=== PATIENT | male | born 1950 | race Caucasian/White ===

== ENCOUNTER 2018-02-07 13:14 | Inpatient (IN) ==
[2018-02-07] MEDS ORDERED: MORPHINE 2 MG/1 ML SYRINGE IV PRN ×2 (15:49→19:33)
[2018-02-07 16:03] LABS: Basophils % 0.6 % (0.0-0.8); Hematocrit 34.8 VOL% (42.0-52.0); Hemoglobin 11.7 GM/DL (14.0-18.0); Immature Granulocytes % 0.6 %; Immature Granulocytes Absolute 0.02 #; Lymphocytes # 0.9 10*3/uL (1.4-4.0); Lymphocytes % 23.8 % (21.2-54.2); Mean Corpuscular HGB Conc 33.6 GM/DL (32-36); Mean Corpuscular Hemoglobin 28 PG (27-34); Mean Corpuscular Volume 81.7 FL (87-102); Mean Platelet Volume 10.7 FL (9.6-12.0); Monocytes # 0.7 10*3/uL (0.11-0.8); Monocytes % 19.6 % (1.7-12.7); Neutrophils % 55.4 % (38.7-73.9); Platelet Count 184 T/CUMM (130-400); Red Blood Count 4.26 MC/CUMM (3.8-5.5); Red Cell Distribution Width 13.8 % (9.3-17.3); White Blood Count 3.6 T/CUMM (4-12)
[2018-02-07] MEDS ORDERED: MORPHINE 2 MG/1 ML SYRINGE ONE (16:23)
[2018-02-07 16:24] LABS: Calcium 8.4 MG/DL (8.5-10.1); Osmolality,Calculated 254.2 MOS/KG (273-304); Potassium 4.6 MMOL/L (3.5-5.1)
[2018-02-07] MEDS ORDERED: SODIUM CHLORIDE 0.9% 1,000 ML IV STA (17:56)
[2018-02-07 18:33] LABS: Band Neutrophils 2 % (0-10); Eosinophils 2 % (0-10); Lymphocytes 22 % (20-55); Platelet Estimate Normal; Segmented Neutrophils 54 % (50-85); Total Cells Counted 100
[2018-02-07] MEDS ORDERED: NICOTINE 21 MG/24 HR PATCH TRANSDERM PRN (19:33)
[2018-02-07] MEDS ORDERED: ONDANSETRON 4 MG/2 ML VIAL IV PRN (19:33)
[2018-02-07] MEDS: SODIUM CHLORIDE 0.9% 1,000 ML IV SCH (21:17)
[2018-02-07] MEDS ORDERED: ONDANSETRON 4 MG TABLET PO PRN (21:21)
[2018-02-07] MEDS ORDERED: LOPERAMIDE 2 MG CAPSULE PO PRN (21:21)
[2018-02-07] MEDS ORDERED: IBUPROFEN 200 MG TABLET PO PRN (21:21)
[2018-02-07] MEDS ORDERED: traMADol 50 MG TABLET PO PRN (21:21)
[2018-02-07] MEDS: ENOXAPARIN 40 MG/0.4 ML SYRINGE SUBCUT SCH (21:26)
[2018-02-07] MEDS: ACETAMINOPHEN 325 MG TABLET PO PRN (21:26)
[2018-02-07] MEDS: LEVOFLOXACIN INJ 750 MG in PREMIX 1 EACH IV SCH (21:26)
[2018-02-07] MEDS: MEGESTROL 40 MG TABLET PO SCH (21:27)
[2018-02-07] MEDS: CARVEDILOL 25 MG TABLET PO SCH (22:14)
[2018-02-07] MEDS: ZALEPLON 5 MG CAPSULE PO PRN (22:54)
[2018-02-08] MEDS: ALBUTEROL/IPRATROPIUM 3 ML NEB RESP TX SCH ×4 (01:55→18:47)
[2018-02-08 05:05] LABS: Basophils % 0.4 % (0.0-0.8); Eosinophils % 0.4 % (0.00-10.9); Hematocrit 31.9 VOL% (42.0-52.0); Hemoglobin 10.8 GM/DL (14.0-18.0); Immature Granulocytes % 0.7 %; Immature Granulocytes Absolute 0.02 #; Lymphocytes # 0.7 10*3/uL (1.4-4.0); Lymphocytes % 24.1 % (21.2-54.2); Mean Corpuscular HGB Conc 33.9 GM/DL (32-36); Mean Corpuscular Hemoglobin 27 PG (27-34); Mean Corpuscular Volume 79.8 FL (87-102); Mean Platelet Volume 10.7 FL (9.6-12.0); Monocytes # 0.7 10*3/uL (0.11-0.8); Monocytes % 24.5 % (1.7-12.7); Neutrophils # 1.4 10*3/uL (1.4-7.4); Neutrophils % 49.9 % (38.7-73.9); Platelet Count 173 T/CUMM (130-400); White Blood Count 2.7 T/CUMM (4-12)
[2018-02-08 05:44] LABS: Albumin 2.2 G/DL (3.4-5.0); Bilirubin,Total 0.9 MG/DL (0.2-1.0); Calcium 7.9 MG/DL (8.5-10.1); Osmolality,Calculated 258.8 MOS/KG (273-304); Potassium 4.2 MMOL/L (3.5-5.1); Total Protein 6.1 G/DL (6.4-8.3)
[2018-02-08 07:02] LABS: Band Neutrophils 22 % (0-10); Lymphocytes 30 % (20-55); Segmented Neutrophils 34 % (50-85); Total Cells Counted 100
[2018-02-08 07:03] LABS: Anisocytosis 1+; Poikilocytosis 1+
[2018-02-08] MEDS: SODIUM CHLORIDE 0.9% 1,000 ML IV SCH ×2 (08:16→19:49)
[2018-02-08] MEDS: MEGESTROL 40 MG TABLET PO SCH ×3 (08:20→20:28)
[2018-02-08] MEDS: PANTOPRAZOLE 40 MG TABLET PO SCH (08:20)
[2018-02-08] MEDS: CARVEDILOL 25 MG TABLET PO SCH ×2 (08:20→20:28)
[2018-02-08] MEDS: amLODIPine 10 MG TABLET PO SCH (08:21)
[2018-02-08] MEDS: ACETAMINOPHEN 325 MG TABLET PO PRN ×2 (08:45→22:25)
[2018-02-08] MEDS: methylPREDNISolone SOD SUC 40 MG/1 ML VIAL IV SCH ×2 (14:18→20:28)
[2018-02-08] MEDS: LEVOFLOXACIN INJ 750 MG in PREMIX 1 EACH IV SCH (20:27)
[2018-02-08] MEDS: ENOXAPARIN 40 MG/0.4 ML SYRINGE SUBCUT SCH (20:49)
[2018-02-08] MEDS: ZALEPLON 5 MG CAPSULE PO PRN (22:25)
[2018-02-09] MEDS: ALBUTEROL/IPRATROPIUM 3 ML NEB RESP TX SCH ×4 (00:05→19:27)
[2018-02-09] MEDS: SODIUM CHLORIDE 0.9% 1,000 ML IV SCH ×2 (06:00→17:38)
[2018-02-09] MEDS: methylPREDNISolone SOD SUC 40 MG/1 ML VIAL IV SCH ×3 (06:00→21:07)
[2018-02-09] MEDS ORDERED: TRIAMCINOLONE ACETONIDE 40 MG/1 ML VIAL MISC INJ ONE (09:00)
[2018-02-09] MEDS ORDERED: ROPIVACAINE 0.5% 30 ML VIAL MISC INJ ONE (09:00)
[2018-02-09] MEDS: MEGESTROL 40 MG TABLET PO SCH ×3 (11:43→21:03)
[2018-02-09] MEDS: PANTOPRAZOLE 40 MG TABLET PO SCH (11:43)
[2018-02-09] MEDS: amLODIPine 10 MG TABLET PO SCH (11:43)
[2018-02-09] MEDS: CARVEDILOL 25 MG TABLET PO SCH ×2 (11:44→21:03)
[2018-02-09] MEDS: FLUTICASONE 50 MCG NASAL SPRAY 16 GM BOTTLE BOTH NARES SCH ×2 (17:36→21:09)
[2018-02-09] MEDS: CIPROFLOXACIN 500 MG TABLET PO SCH (21:03)
[2018-02-09] MEDS: ZALEPLON 5 MG CAPSULE PO PRN (21:06)
[2018-02-09] MEDS: ENOXAPARIN 40 MG/0.4 ML SYRINGE SUBCUT SCH (21:10)
[2018-02-10] MEDS: ALBUTEROL/IPRATROPIUM 3 ML NEB RESP TX SCH ×2 (00:12→07:08)
[2018-02-10] MEDS: methylPREDNISolone SOD SUC 40 MG/1 ML VIAL IV SCH (04:47)
[2018-02-10 08:32] VITALS: BP 137/59
[2018-02-10] MEDS: MEGESTROL 40 MG TABLET PO SCH (09:17)
[2018-02-10] MEDS: PANTOPRAZOLE 40 MG TABLET PO SCH (09:17)
[2018-02-10] MEDS: CIPROFLOXACIN 500 MG TABLET PO SCH (09:17)
[2018-02-10] MEDS: amLODIPine 10 MG TABLET PO SCH (09:17)
[2018-02-10] MEDS: CARVEDILOL 25 MG TABLET PO SCH (09:18)
[2018-02-10] MEDS: FLUTICASONE 50 MCG NASAL SPRAY 16 GM BOTTLE BOTH NARES SCH (09:18)
[2018-02-10] MEDS ORDERED: diphenhydrAMINE 25 MG/10 ML UDCUP PO PRN (10:20)
[2018-02-10] MEDS ORDERED: BENZONATATE 100 MG CAPSULE PO SCH (13:00)
== END 2018-02-10 15:21 | disposition home or self-care (01) | DRG 205 ==
LOC: N.ED 13:14 → N.EDINP 18:31 → N.4E 20:54
PROVIDERS: ADMIT Internal Medicine; ATTEND Internal Medicine

== ENCOUNTER 2018-02-17 16:01 | Inpatient (IN) ==
[2018-02-17 18:14] LABS: Basophils % 0.2 % (0.0-0.8); Hematocrit 34.9 VOL% (42.0-52.0); Hemoglobin 11.8 GM/DL (14.0-18.0); Immature Granulocytes % 1.8 %; Immature Granulocytes Absolute 0.24 #; Lymphocytes # 1.1 10*3/uL (1.4-4.0); Lymphocytes % 7.9 % (21.2-54.2); Mean Corpuscular HGB Conc 33.8 GM/DL (32-36); Mean Corpuscular Hemoglobin 27 PG (27-34); Mean Corpuscular Volume 79.5 FL (87-102); Mean Platelet Volume 9.2 FL (9.6-12.0); Monocytes # 0.8 10*3/uL (0.11-0.8); Monocytes % 6.2 % (1.7-12.7); Neutrophils # 11.2 10*3/uL (1.4-7.4); Neutrophils % 83.9 % (38.7-73.9); Platelet Count 353 T/CUMM (130-400); Red Blood Count 4.39 MC/CUMM (3.8-5.5); Red Cell Distribution Width 15.8 % (9.3-17.3); White Blood Count 13.3 T/CUMM (4-12)
[2018-02-17] MEDS ORDERED: SODIUM CHLORIDE 0.9% 1,000 ML IV STA (18:24)
[2018-02-17] MEDS ORDERED: LEVOFLOXACIN INJ 750 MG in PREMIX 1 EACH IV STA (18:25)
[2018-02-17 18:40] LABS: Albumin 2.5 G/DL (3.4-5.0); Bilirubin,Total 0.5 MG/DL (0.2-1.0); Calcium 8.6 MG/DL (8.5-10.1); Osmolality,Calculated 265.5 MOS/KG (273-304); Potassium 4.2 MMOL/L (3.5-5.1); Total Protein 6.6 G/DL (6.4-8.3)
[2018-02-17 18:49] LABS: PT Patient Result 10.5 SECS
[2018-02-17] MEDS ORDERED: CEFEPIME 2,000 MG in SODIUM CHLORIDE 0.9% 100 ML IV STA (19:05)
[2018-02-17] MEDS ORDERED: LEVOFLOXACIN INJ 150 ML IV ONE (20:02)
[2018-02-17] MEDS ORDERED: CEFEPIME 2,000 MG VIAL ONE (21:19)
[2018-02-17] MEDS ORDERED: ONDANSETRON 4 MG TABLET PO PRN (22:03)
[2018-02-17] MEDS ORDERED: ONDANSETRON 4 MG/2 ML VIAL IV PRN (22:03)
[2018-02-17] MEDS ORDERED: LOPERAMIDE 2 MG CAPSULE PO PRN (22:03)
[2018-02-17] MEDS: PIPERACILLIN/TAZOBACTAM 3,375 MG in SODIUM CHLORIDE 0.9% 100 ML IV SCH (22:26)
[2018-02-17] MEDS: SODIUM CHLORIDE 0.9% 1,000 ML IV SCH (22:27)
[2018-02-17] MEDS: ENOXAPARIN 40 MG/0.4 ML SYRINGE SUBCUT SCH (22:27)
[2018-02-17] MEDS: CARVEDILOL 25 MG TABLET PO SCH (22:27)
[2018-02-17] MEDS: FLUTICASONE 50 MCG NASAL SPRAY 16 GM BOTTLE BOTH NARES SCH (22:27)
[2018-02-17] MEDS: MEGESTROL 40 MG TABLET PO SCH (22:27)
[2018-02-17] MEDS: traMADol 50 MG TABLET PO PRN (22:32)
[2018-02-17] MEDS: ACETAMINOPHEN 325 MG TABLET PO PRN (22:32)
[2018-02-17 23:20] LABS: Thyroid Stimulating Hormone 0.143 uIU/ml (0.358-3.74)
[2018-02-18] MEDS: traZODone 50 MG TABLET PO PRN ×2 (01:27→20:54)
[2018-02-18 05:58] LABS: Basophils % 0.2 % (0.0-0.8); Eosinophils % 0.3 % (0.00-10.9); Hematocrit 30.9 VOL% (42.0-52.0); Hemoglobin 10.5 GM/DL (14.0-18.0); Immature Granulocytes % 1.4 %; Immature Granulocytes Absolute 0.16 #; Lymphocytes # 1.4 10*3/uL (1.4-4.0); Lymphocytes % 12.8 % (21.2-54.2); Mean Corpuscular Hemoglobin 27 PG (27-34); Mean Corpuscular Volume 79.6 FL (87-102); Mean Platelet Volume 9.3 FL (9.6-12.0); Monocytes % 9.1 % (1.7-12.7); Neutrophils # 8.6 10*3/uL (1.4-7.4); Neutrophils % 76.2 % (38.7-73.9); Platelet Count 306 T/CUMM (130-400); Red Blood Count 3.88 MC/CUMM (3.8-5.5); Red Cell Distribution Width 15.9 % (9.3-17.3); White Blood Count 11.2 T/CUMM (4-12)
[2018-02-18 06:34] LABS: Albumin 2.1 G/DL (3.4-5.0); Bilirubin,Total 0.6 MG/DL (0.2-1.0); Calcium 8.3 MG/DL (8.5-10.1); Osmolality,Calculated 267.1 MOS/KG (273-304); Potassium 3.9 MMOL/L (3.5-5.1); Risk Ratio 3.21; Total Protein 5.7 G/DL (6.4-8.3); VLDL CHOLESTEROL 13.8 MG/DL
[2018-02-18] MEDS: PIPERACILLIN/TAZOBACTAM 3,375 MG in SODIUM CHLORIDE 0.9% 100 ML IV SCH ×3 (07:12→22:30)
[2018-02-18] MEDS: MULTIVITAMIN (CENTRUM) TABLET PO SCH (10:00)
[2018-02-18] MEDS: CARVEDILOL 25 MG TABLET PO SCH ×2 (10:01→20:54)
[2018-02-18] MEDS: FLUTICASONE 50 MCG NASAL SPRAY 16 GM BOTTLE BOTH NARES SCH ×2 (10:01→20:54)
[2018-02-18] MEDS: MEGESTROL 40 MG TABLET PO SCH ×3 (10:02→20:53)
[2018-02-18] MEDS: amLODIPine 10 MG TABLET PO SCH (10:02)
[2018-02-18] MEDS: predniSONE 20 MG TABLET PO SCH (10:02)
[2018-02-18] MEDS: traMADol 50 MG TABLET PO PRN ×2 (10:05→20:59)
[2018-02-18] MEDS: SODIUM CHLORIDE 0.9% 1,000 ML IV SCH (14:16)
[2018-02-18 19:40] LABS: Apearance,Urine CLEAR (Clear); Bilirubin,Urine Negative (Negative); Blood, Urine Negative (Negative); Glucose,Urine (UA) 50 mg/dL (Negative); Ketones,Urine Negative (Negative); Nitrite,Urine Negative (Negative); Protein,Urine Negative; RBC,Urine <1 /HPF (0-4); Squamous Epithelial Cell,Urine Occasional /HPF (0-10); Urine Color Yellow (Yellow); Urine Specific Gravity 1.016 (1.001-1.035); Urine Urobilinogen < 2.0 EU/DL (0.2-1.0); WBC,Urine 1 /HPF (0-6)
[2018-02-18] MEDS: ALBUTEROL/IPRATROPIUM 3 ML NEB RESP TX SCH (20:01)
[2018-02-18] MEDS: ENOXAPARIN 40 MG/0.4 ML SYRINGE SUBCUT SCH (20:53)
[2018-02-18] MEDS: LEVOFLOXACIN INJ 750 MG in PREMIX 1 EACH IV SCH (20:53)
[2018-02-18] MEDS: ACETAMINOPHEN 325 MG TABLET PO PRN (20:59)
[2018-02-19] MEDS: ALBUTEROL/IPRATROPIUM 3 ML NEB RESP TX SCH ×4 (01:11→19:37)
[2018-02-19 06:35] LABS: Basophils % 0.1 % (0.0-0.8); Eosinophils % 0.2 % (0.00-10.9); Hematocrit 32.6 VOL% (42.0-52.0); Hemoglobin 10.9 GM/DL (14.0-18.0); Immature Granulocytes % 1.1 %; Immature Granulocytes Absolute 0.11 #; Lymphocytes # 1.3 10*3/uL (1.4-4.0); Lymphocytes % 12.9 % (21.2-54.2); Mean Corpuscular HGB Conc 33.4 GM/DL (32-36); Mean Corpuscular Hemoglobin 27 PG (27-34); Mean Corpuscular Volume 79.7 FL (87-102); Mean Platelet Volume 9.3 FL (9.6-12.0); Monocytes # 0.9 10*3/uL (0.11-0.8); Monocytes % 8.7 % (1.7-12.7); Neutrophils # 7.8 10*3/uL (1.4-7.4); Platelet Count 299 T/CUMM (130-400); Red Blood Count 4.09 MC/CUMM (3.8-5.5); White Blood Count 10.1 T/CUMM (4-12)
[2018-02-19] MEDS: PIPERACILLIN/TAZOBACTAM 3,375 MG in SODIUM CHLORIDE 0.9% 100 ML IV SCH ×2 (07:02→13:58)
[2018-02-19 07:09] LABS: Calcium 8.2 MG/DL (8.5-10.1); Osmolality,Calculated 267.1 MOS/KG (273-304)
[2018-02-19] MEDS: amLODIPine 10 MG TABLET PO SCH (08:49)
[2018-02-19] MEDS: MEGESTROL 40 MG TABLET PO SCH ×4 (08:49→21:06)
[2018-02-19] MEDS: predniSONE 20 MG TABLET PO SCH (08:49)
[2018-02-19] MEDS: FLUTICASONE 50 MCG NASAL SPRAY 16 GM BOTTLE BOTH NARES SCH ×2 (08:49→21:06)
[2018-02-19] MEDS: MULTIVITAMIN (CENTRUM) TABLET PO SCH (08:50)
[2018-02-19] MEDS: CARVEDILOL 25 MG TABLET PO SCH ×2 (08:50→21:05)
[2018-02-19] MEDS: traMADol 50 MG TABLET PO PRN ×2 (08:55→21:54)
[2018-02-19] MEDS: NICOTINE 21 MG/24 HR PATCH TRANSDERM PRN (08:55)
[2018-02-19] MEDS: SODIUM CHLORIDE 0.9% 1,000 ML IV SCH ×2 (11:20→13:55)
[2018-02-19] MEDS: ENOXAPARIN 40 MG/0.4 ML SYRINGE SUBCUT SCH (21:06)
[2018-02-19] MEDS: traZODone 50 MG TABLET PO PRN (21:06)
[2018-02-19] MEDS: LEVOFLOXACIN INJ 750 MG in PREMIX 1 EACH IV SCH (21:54)
[2018-02-20] MEDS: PIPERACILLIN/TAZOBACTAM 3,375 MG in SODIUM CHLORIDE 0.9% 100 ML IV SCH ×2 (00:44→09:23)
[2018-02-20] MEDS: ALBUTEROL/IPRATROPIUM 3 ML NEB RESP TX SCH ×4 (00:53→19:21)
[2018-02-20] MEDS: SODIUM CHLORIDE 0.9% 1,000 ML IV SCH ×2 (08:08→17:17)
[2018-02-20] MEDS: MULTIVITAMIN (CENTRUM) TABLET PO SCH (09:23)
[2018-02-20] MEDS: CARVEDILOL 25 MG TABLET PO SCH ×2 (09:23→20:54)
[2018-02-20] MEDS: MEGESTROL 40 MG TABLET PO SCH ×3 (09:23→20:54)
[2018-02-20] MEDS: predniSONE 20 MG TABLET PO SCH (09:23)
[2018-02-20] MEDS: FLUTICASONE 50 MCG NASAL SPRAY 16 GM BOTTLE BOTH NARES SCH ×2 (09:24→22:02)
[2018-02-20] MEDS: amLODIPine 10 MG TABLET PO SCH (09:24)
[2018-02-20] MEDS: traMADol 50 MG TABLET PO PRN ×2 (09:27→20:54)
[2018-02-20] MEDS: amLODIPine 5 MG TABLET PO SCH (11:38)
[2018-02-20] MEDS: NICOTINE 21 MG/24 HR PATCH TRANSDERM PRN (14:07)
[2018-02-20] MEDS ORDERED: BISACODYL 5 MG TABLET PO PRN (14:13)
[2018-02-20] MEDS: traZODone 50 MG TABLET PO PRN (20:54)
[2018-02-20] MEDS: LEVOFLOXACIN INJ 750 MG in PREMIX 1 EACH IV SCH (20:55)
[2018-02-20] MEDS: ENOXAPARIN 40 MG/0.4 ML SYRINGE SUBCUT SCH (20:55)
[2018-02-21] MEDS: ALBUTEROL/IPRATROPIUM 3 ML NEB RESP TX SCH ×2 (00:28→07:10)
[2018-02-21 05:59] LABS: Basophils % 0.1 % (0.0-0.8); Eosinophils % 0.2 % (0.00-10.9); Hemoglobin 10.8 GM/DL (14.0-18.0); Immature Granulocytes % 0.8 %; Immature Granulocytes Absolute 0.08 #; Lymphocytes # 1.5 10*3/uL (1.4-4.0); Lymphocytes % 14.9 % (21.2-54.2); Mean Corpuscular HGB Conc 33.8 GM/DL (32-36); Mean Corpuscular Hemoglobin 27 PG (27-34); Mean Corpuscular Volume 80.2 FL (87-102); Mean Platelet Volume 9.6 FL (9.6-12.0); Monocytes # 0.9 10*3/uL (0.11-0.8); Monocytes % 8.9 % (1.7-12.7); Neutrophils # 7.4 10*3/uL (1.4-7.4); Neutrophils % 75.1 % (38.7-73.9); Platelet Count 296 T/CUMM (130-400); Red Blood Count 3.99 MC/CUMM (3.8-5.5); Red Cell Distribution Width 15.9 % (9.3-17.3); White Blood Count 9.9 T/CUMM (4-12)
[2018-02-21 06:32] LABS: Calcium 8.1 MG/DL (8.5-10.1); Osmolality,Calculated 268.1 MOS/KG (273-304); Potassium 3.8 MMOL/L (3.5-5.1)
[2018-02-21] MEDS: SODIUM CHLORIDE 0.9% 1,000 ML IV SCH (08:24)
[2018-02-21] MEDS: CARVEDILOL 25 MG TABLET PO SCH (08:25)
[2018-02-21] MEDS: MULTIVITAMIN (CENTRUM) TABLET PO SCH (08:25)
[2018-02-21] MEDS: MEGESTROL 40 MG TABLET PO SCH (08:25)
[2018-02-21] MEDS: amLODIPine 5 MG TABLET PO SCH (08:25)
[2018-02-21] MEDS: FLUTICASONE 50 MCG NASAL SPRAY 16 GM BOTTLE BOTH NARES SCH (08:25)
[2018-02-21] MEDS: predniSONE 20 MG TABLET PO SCH (08:25)
[2018-02-21] MEDS: traMADol 50 MG TABLET PO PRN (08:31)
[2018-02-21] MEDS ORDERED: LEVOFLOXACIN 500 MG TABLET PO SCH (09:30)
[2018-02-21] MEDS ORDERED: PHENYLEPH/MINERAL OIL/PETROLAT 57 GM TUBE TOP PRN (09:35)
[2018-02-21] MEDS ORDERED: MEGESTROL 40 MG TABLET PO SCH (11:30)
[2018-02-21 12:51] VITALS: BP 140/68
== END 2018-02-21 13:43 | disposition home or self-care (01) | DRG 194 ==
LOC: N.ED 16:01 → N.EDINP 19:56 → SUATTDRO 19:56 → N.5E 21:13
PROVIDERS: ADMIT Internal Medicine; ATTEND Internal Medicine

== ENCOUNTER 2018-10-16 06:33 | Inpatient (IN) ==
[2018-10-16] MEDS ORDERED: ALBUTEROL/IPRATROPIUM 3 ML NEB RESP TX STA (06:50)
[2018-10-16] MEDS ORDERED: methylPREDNISolone SOD SUC 125 MG/2 ML VIAL IV STA (06:50)
[2018-10-16 07:08] LABS: Basophils % 0.8 % (0.0-0.8); Eosinophils # 0.1 10*3/uL (0.0-0.87); Eosinophils % 2.4 % (0.00-10.9); Hematocrit 43.8 VOL% (42.0-52.0); Hemoglobin 14.5 GM/DL (14.0-18.0); Immature Granulocytes % 0.4 %; Immature Granulocytes Absolute 0.02 #; Lymphocytes # 0.6 10*3/uL (1.4-4.0); Lymphocytes % 11.4 % (21.2-54.2); Mean Corpuscular HGB Conc 33.1 GM/DL (32-36); Mean Corpuscular Hemoglobin 30 PG (27-34); Mean Corpuscular Volume 89.6 FL (87-102); Monocytes # 0.4 10*3/uL (0.11-0.8); Monocytes % 8.2 % (1.7-12.7); Neutrophils # 3.9 10*3/uL (1.4-7.4); Neutrophils % 76.8 % (38.7-73.9); Platelet Count 168 T/CUMM (130-400); Red Blood Count 4.89 MC/CUMM (3.8-5.5); Red Cell Distribution Width 14.8 % (9.3-17.3); White Blood Count 5.1 T/CUMM (4-12)
[2018-10-16 07:37] LABS: Albumin 3.2 G/DL (3.4-5.0); Bilirubin,Total 0.5 MG/DL (0.2-1.0); Calcium 8.6 MG/DL (8.5-10.1); Osmolality,Calculated 273.8 MOS/KG (273-304); Potassium 4.3 MMOL/L (3.5-5.1); Total Protein 7.3 G/DL (6.4-8.3)
[2018-10-16] MEDS ORDERED: LEVOFLOXACIN INJ 500 MG in PREMIX 1 EACH IV STA (08:31)
[2018-10-16] MEDS ORDERED: ONDANSETRON 4 MG/2 ML VIAL IV PRN (08:50)
[2018-10-16] MEDS: PANTOPRAZOLE 40 MG TABLET PO SCH (11:03)
[2018-10-16] MEDS: ENOXAPARIN 40 MG/0.4 ML SYRINGE SUBCUT SCH (11:03)
[2018-10-16] MEDS ORDERED: ALBUTEROL 2.5 MG/3 ML NEB RESP TX PRN (11:45)
[2018-10-16] MEDS ORDERED: SIMETHICONE CHEW 125 MG TABLET PO PRN (11:58)
[2018-10-16] MEDS: NICOTINE 21 MG/24 HR PATCH TRANSDERM SCH (12:49)
[2018-10-16] MEDS: ALBUTEROL/IPRATROPIUM 3 ML NEB RESP TX SCH ×2 (13:00→19:09)
[2018-10-16] MEDS: ACETAMINOPHEN 325 MG TABLET PO PRN ×2 (14:10→21:12)
[2018-10-16] MEDS ORDERED: traZODone 50 MG TABLET PO PRN (15:22)
[2018-10-16] MEDS ORDERED: NITROGLYCERIN SL 0.4 MG TABLET SL PRN (15:40)
[2018-10-16] MEDS ORDERED: NITROGLYCERIN SL 0.4 MG TABLET SL ONE (15:41)
[2018-10-16] MEDS ORDERED: MORPHINE 4 MG/1 ML VIAL IV PRN (15:41)
[2018-10-16 16:05] LABS: Basophils % 0.3 % (0.0-0.8); Hemoglobin 14.4 GM/DL (14.0-18.0); Immature Granulocytes % 0.8 %; Immature Granulocytes Absolute 0.03 #; Lymphocytes # 0.4 10*3/uL (1.4-4.0); Lymphocytes % 9.5 % (21.2-54.2); Mean Corpuscular HGB Conc 33.5 GM/DL (32-36); Mean Corpuscular Hemoglobin 30 PG (27-34); Mean Corpuscular Volume 89.8 FL (87-102); Mean Platelet Volume 9.7 FL (9.6-12.0); Monocytes # 0.1 10*3/uL (0.11-0.8); Monocytes % 2.3 % (1.7-12.7); Neutrophils # 3.4 10*3/uL (1.4-7.4); Neutrophils % 87.1 % (38.7-73.9); Platelet Count 191 T/CUMM (130-400); Red Blood Count 4.79 MC/CUMM (3.8-5.5); Red Cell Distribution Width 14.7 % (9.3-17.3); White Blood Count 3.9 T/CUMM (4-12)
[2018-10-16 16:20] LABS: Albumin 3.5 G/DL (3.4-5.0); Bilirubin,Total 0.6 MG/DL (0.2-1.0); Calcium 8.8 MG/DL (8.5-10.1); Osmolality,Calculated 272.2 MOS/KG (273-304); Potassium 4.2 MMOL/L (3.5-5.1); Total Protein 7.7 G/DL (6.4-8.3)
[2018-10-16 16:37] LABS: Allen Test Positive; Pt O2 Delivery Device BIPAP
[2018-10-16] MEDS: cefTRIAXone 1,000 MG in SYRINGE 1 EACH IV SCH (16:38)
[2018-10-16] MEDS: methylPREDNISolone SOD SUC 40 MG/1 ML VIAL IV SCH ×2 (16:38→23:52)
[2018-10-16] MEDS: FUROSEMIDE 40 MG/4 ML VIAL IV SCH (16:38)
[2018-10-16] MEDS: ISOSORBIDE MONONITRATE 30 MG TABLET PO SCH (16:39)
[2018-10-16] MEDS: ASPIRIN EC 325 MG TABLET PO SCH (16:39)
[2018-10-16 16:40] LABS: ABG HCO3 22.7 MMOL/L (20-26); ABG Oxygen Saturation 96.1 % (95-100); ABG PCO2 26.5 MM HG (35-48); ABG PH 7.482 (7.35-7.45); ABG PO2 79.4 MM HG (80-95); ABG TCO2 16.9 MMOL/L (23-27)
[2018-10-16] MEDS: ATORVASTATIN 40 MG TABLET PO SCH (21:13)
[2018-10-16] MEDS: CARVEDILOL 25 MG TABLET PO SCH (21:13)
[2018-10-16] MEDS: MINERAL OIL/PETROLATUM OPH OINT 3.5 GM TUBE BOTH EYES SCH (21:13)
[2018-10-17] MEDS: ALBUTEROL/IPRATROPIUM 3 ML NEB RESP TX SCH ×5 (00:21→19:13)
[2018-10-17 04:48] LABS: Basophils % 0.2 % (0.0-0.8); Hematocrit 38.9 VOL% (42.0-52.0); Hemoglobin 12.8 GM/DL (14.0-18.0); Immature Granulocytes % 0.8 %; Immature Granulocytes Absolute 0.05 #; Lymphocytes # 0.6 10*3/uL (1.4-4.0); Lymphocytes % 9.3 % (21.2-54.2); Mean Corpuscular HGB Conc 32.9 GM/DL (32-36); Mean Corpuscular Hemoglobin 29 PG (27-34); Mean Corpuscular Volume 88.6 FL (87-102); Mean Platelet Volume 9.6 FL (9.6-12.0); Monocytes # 0.3 10*3/uL (0.11-0.8); Monocytes % 5.3 % (1.7-12.7); Neutrophils # 5.2 10*3/uL (1.4-7.4); Neutrophils % 84.4 % (38.7-73.9); Platelet Count 192 T/CUMM (130-400); Red Blood Count 4.39 MC/CUMM (3.8-5.5); Red Cell Distribution Width 14.8 % (9.3-17.3); White Blood Count 6.2 T/CUMM (4-12)
[2018-10-17 05:12] LABS: Calcium 8.8 MG/DL (8.5-10.1); Osmolality,Calculated 268.5 MOS/KG (273-304); Potassium 3.8 MMOL/L (3.5-5.1)
[2018-10-17 05:24] LABS: Albumin 3.1 G/DL (3.4-5.0); Bilirubin,Total 0.7 MG/DL (0.2-1.0); Calcium 8.7 MG/DL (8.5-10.1); Osmolality,Calculated 269.5 MOS/KG (273-304); Potassium 3.8 MMOL/L (3.5-5.1); Thyroid Stimulating Hormone 0.442 uIU/ml (0.358-3.74); Total Protein 7.4 G/DL (6.4-8.3)
[2018-10-17 08:35] LABS: PT Patient Result 10.1 SECS
[2018-10-17] MEDS: ISOSORBIDE MONONITRATE 30 MG TABLET PO SCH (08:56)
[2018-10-17] MEDS: ASPIRIN EC 325 MG TABLET PO SCH (08:56)
[2018-10-17] MEDS: PANTOPRAZOLE 40 MG TABLET PO SCH (08:57)
[2018-10-17] MEDS ORDERED: LEVOFLOXACIN INJ 500 MG in PREMIX 1 EACH IV SCH (09:00)
[2018-10-17] MEDS ORDERED: MELOXICAM 7.5 MG TABLET PO SCH (09:00)
[2018-10-17] MEDS: CARVEDILOL 25 MG TABLET PO SCH ×2 (09:01→20:07)
[2018-10-17] MEDS: methylPREDNISolone SOD SUC 40 MG/1 ML VIAL IV SCH ×3 (09:04→23:47)
[2018-10-17] MEDS: FUROSEMIDE 40 MG/4 ML VIAL IV SCH ×2 (09:10→15:42)
[2018-10-17] MEDS: NICOTINE 21 MG/24 HR PATCH TRANSDERM SCH (09:18)
[2018-10-17] MEDS: ENOXAPARIN 40 MG/0.4 ML SYRINGE SUBCUT SCH (09:21)
[2018-10-17] MEDS: ACETAMINOPHEN 325 MG TABLET PO PRN ×2 (11:38→20:08)
[2018-10-17] MEDS: cefTRIAXone 1,000 MG in SYRINGE 1 EACH IV SCH (15:38)
[2018-10-17 15:42] LABS: Amylase,Pleural Fluid 15 U/L; Glucose,Pleural Fluid 165 MG/DL; LDH,Pleural Fluid 151 U/L; Total Protein,Pleural Fluid 4.1 G/DL; Triglycerides,Body Fluid < 14 MG/DL
[2018-10-17 16:29] LABS: Eosinophils,Pleural Fluid 1 %; Lymphocytes,Pleural Fluid 89 %; Monocytes,Pleural Fluid 2 %; Neutrophils,Pleural Fluid 8 %; RBC,Pleural Fluid 221 T/CUMM
[2018-10-17] MEDS: MINERAL OIL/PETROLATUM OPH OINT 3.5 GM TUBE BOTH EYES SCH (20:07)
[2018-10-17] MEDS: ATORVASTATIN 40 MG TABLET PO SCH (20:07)
[2018-10-18 03:18] LABS: ABG Base Excess 1.4 MMOL/L (-2.5-2.5); ABG HCO3 25.1 MMOL/L (20-26); ABG Oxygen Saturation 97.5 % (95-100); ABG PCO2 36.7 MM HG (35-48); ABG PH 7.453 (7.35-7.45); ABG PO2 99.9 MM HG (80-95); ABG TCO2 26.2 MMOL/L (23-27); Allen Test Positive
[2018-10-18 05:20] LABS: Basophils % 0.1 % (0.0-0.8); Hematocrit 40.6 VOL% (42.0-52.0); Hemoglobin 13.6 GM/DL (14.0-18.0); Immature Granulocytes % 1.1 %; Lymphocytes # 0.4 10*3/uL (1.4-4.0); Lymphocytes % 4.8 % (21.2-54.2); Mean Corpuscular HGB Conc 33.5 GM/DL (32-36); Mean Corpuscular Hemoglobin 30 PG (27-34); Mean Corpuscular Volume 88.6 FL (87-102); Mean Platelet Volume 9.7 FL (9.6-12.0); Monocytes # 0.5 10*3/uL (0.11-0.8); Monocytes % 4.9 % (1.7-12.7); Neutrophils # 8.1 10*3/uL (1.4-7.4); Neutrophils % 89.1 % (38.7-73.9); Platelet Count 196 T/CUMM (130-400); Red Blood Count 4.58 MC/CUMM (3.8-5.5); Red Cell Distribution Width 14.6 % (9.3-17.3); White Blood Count 9.1 T/CUMM (4-12)
[2018-10-18 05:40] LABS: Calcium 8.7 MG/DL (8.5-10.1); Osmolality,Calculated 276.2 MOS/KG (273-304); Potassium 3.8 MMOL/L (3.5-5.1)
[2018-10-18 05:41] LABS: Troponin I 1.59 NG/ML (0.00-0.045)
[2018-10-18 05:50] LABS: Hypochromasia 1+; Lymphocytes 4 % (20-55); Platelet Estimate Adequate; Segmented Neutrophils 94 % (50-85); Total Cells Counted 100
[2018-10-18] MEDS: ACETAMINOPHEN 325 MG TABLET PO PRN (06:09)
[2018-10-18] MEDS: ALBUTEROL/IPRATROPIUM 3 ML NEB RESP TX SCH ×3 (07:03→19:33)
[2018-10-18] MEDS: ASPIRIN EC 325 MG TABLET PO SCH (09:02)
[2018-10-18] MEDS: LISINOPRIL 2.5 MG TABLET PO SCH (09:03)
[2018-10-18] MEDS: ISOSORBIDE MONONITRATE 30 MG TABLET PO SCH (09:03)
[2018-10-18] MEDS: PANTOPRAZOLE 40 MG TABLET PO SCH (09:03)
[2018-10-18] MEDS: CARVEDILOL 25 MG TABLET PO SCH ×2 (09:04→21:10)
[2018-10-18] MEDS: ENOXAPARIN 40 MG/0.4 ML SYRINGE SUBCUT SCH (09:05)
[2018-10-18] MEDS: methylPREDNISolone SOD SUC 40 MG/1 ML VIAL IV SCH ×3 (09:08→22:31)
[2018-10-18] MEDS: FUROSEMIDE 40 MG/4 ML VIAL IV SCH ×2 (09:12→16:03)
[2018-10-18] MEDS: NICOTINE 21 MG/24 HR PATCH TRANSDERM SCH (09:16)
[2018-10-18] MEDS: LEVOFLOXACIN 500 MG TABLET PO SCH (10:33)
[2018-10-18] MEDS ORDERED: ONDANSETRON 4 MG TABLET PO PRN (11:50)
[2018-10-18] MEDS: MULTIVITAMIN (CENTRUM) TABLET PO SCH (12:13)
[2018-10-18] MEDS: cefTRIAXone 1,000 MG in SYRINGE 1 EACH IV SCH (16:02)
[2018-10-18] MEDS: ATORVASTATIN 40 MG TABLET PO SCH (21:10)
[2018-10-18] MEDS: MINERAL OIL/PETROLATUM OPH OINT 3.5 GM TUBE BOTH EYES SCH (21:14)
[2018-10-19] MEDS: ALBUTEROL/IPRATROPIUM 3 ML NEB RESP TX SCH ×4 (00:40→19:01)
[2018-10-19 06:08] LABS: Calcium 8.4 MG/DL (8.5-10.1); Osmolality,Calculated 274.4 MOS/KG (273-304); Potassium 3.8 MMOL/L (3.5-5.1)
[2018-10-19] MEDS: CARVEDILOL 25 MG TABLET PO SCH ×2 (08:32→20:17)
[2018-10-19] MEDS: LEVOFLOXACIN 500 MG TABLET PO SCH (08:32)
[2018-10-19] MEDS: LISINOPRIL 2.5 MG TABLET PO SCH ×2 (08:32→20:17)
[2018-10-19] MEDS: ASPIRIN EC 325 MG TABLET PO SCH (08:32)
[2018-10-19] MEDS: MULTIVITAMIN (CENTRUM) TABLET PO SCH (08:32)
[2018-10-19] MEDS: ENOXAPARIN 40 MG/0.4 ML SYRINGE SUBCUT SCH (08:33)
[2018-10-19] MEDS: NICOTINE 21 MG/24 HR PATCH TRANSDERM SCH (08:33)
[2018-10-19] MEDS: ISOSORBIDE MONONITRATE 30 MG TABLET PO SCH (08:33)
[2018-10-19] MEDS: FUROSEMIDE 40 MG/4 ML VIAL IV SCH ×2 (08:33→16:12)
[2018-10-19] MEDS: PANTOPRAZOLE 40 MG TABLET PO SCH (08:33)
[2018-10-19] MEDS: methylPREDNISolone SOD SUC 40 MG/1 ML VIAL IV SCH (08:41)
[2018-10-19] MEDS ORDERED: ALUMINUM/MAGNES/SIMETH MAX STR 30 ML UDCUP PO PRN (14:21)
[2018-10-19] MEDS ORDERED: MAGNESIUM HYDROXIDE SUSP 30 ML UDCUP PO PRN (14:21)
[2018-10-19] MEDS ORDERED: ACETAMINOPHEN 325 MG TABLET PO PRN (14:22)
[2018-10-19] MEDS ORDERED: MAGNESIUM SULF RIDER 2 GM in PREMIX 1 EACH IV PRN (14:23)
[2018-10-19] MEDS ORDERED: POTASSIUM CHLORIDE 20 MEQ TABLET PO PRN (14:23)
[2018-10-19] MEDS ORDERED: MAGNESIUM SULF RIDER 4 GM in PREMIX 1 EACH IV PRN (14:23)
[2018-10-19] MEDS: cefTRIAXone 1,000 MG in SYRINGE 1 EACH IV SCH (16:11)
[2018-10-19] MEDS: ATORVASTATIN 40 MG TABLET PO SCH (20:18)
[2018-10-19] MEDS: MINERAL OIL/PETROLATUM OPH OINT 3.5 GM TUBE BOTH EYES SCH (20:18)
[2018-10-20] MEDS: ALBUTEROL/IPRATROPIUM 3 ML NEB RESP TX SCH ×3 (01:27→13:28)
[2018-10-20 06:14] LABS: Basophils % 0.3 % (0.0-0.8); Eosinophils # 0.1 10*3/uL (0.0-0.87); Eosinophils % 1.2 % (0.00-10.9); Hemoglobin 13.2 GM/DL (14.0-18.0); Immature Granulocytes % 1.3 %; Immature Granulocytes Absolute 0.08 #; Lymphocytes # 1.3 10*3/uL (1.4-4.0); Lymphocytes % 21.9 % (21.2-54.2); Mean Corpuscular Hemoglobin 30 PG (27-34); Mean Corpuscular Volume 89.7 FL (87-102); Mean Platelet Volume 9.8 FL (9.6-12.0); Monocytes # 0.8 10*3/uL (0.11-0.8); Monocytes % 13.5 % (1.7-12.7); Neutrophils # 3.7 10*3/uL (1.4-7.4); Neutrophils % 61.8 % (38.7-73.9); Platelet Count 175 T/CUMM (130-400); Red Blood Count 4.46 MC/CUMM (3.8-5.5); Red Cell Distribution Width 14.6 % (9.3-17.3); White Blood Count 5.9 T/CUMM (4-12)
[2018-10-20 06:25] LABS: Calcium 8.1 MG/DL (8.5-10.1); Osmolality,Calculated 273.4 MOS/KG (273-304); Potassium 3.5 MMOL/L (3.5-5.1)
[2018-10-20] MEDS: PANTOPRAZOLE 40 MG TABLET PO SCH (09:26)
[2018-10-20] MEDS: LEVOFLOXACIN 500 MG TABLET PO SCH (09:26)
[2018-10-20] MEDS: ASPIRIN EC 325 MG TABLET PO SCH (09:27)
[2018-10-20] MEDS: FUROSEMIDE 40 MG/4 ML VIAL IV SCH (09:27)
[2018-10-20] MEDS: ENOXAPARIN 40 MG/0.4 ML SYRINGE SUBCUT SCH (09:27)
[2018-10-20] MEDS: MULTIVITAMIN (CENTRUM) TABLET PO SCH (09:27)
[2018-10-20] MEDS: CARVEDILOL 25 MG TABLET PO SCH (09:32)
[2018-10-20] MEDS: NICOTINE 21 MG/24 HR PATCH TRANSDERM SCH (09:32)
[2018-10-20] MEDS: ISOSORBIDE MONONITRATE 30 MG TABLET PO SCH (09:32)
[2018-10-20] MEDS: LISINOPRIL 2.5 MG TABLET PO SCH (09:32)
[2018-10-20 12:56] VITALS: BP 113/72
[2018-10-20] MEDS ORDERED: NEOMYCIN/POLYMYXIN/BACITRACIN OINT 0.9 GM PACK TOP SCH (15:00)
[2018-10-20] MEDS ORDERED: FUROSEMIDE 40 MG TABLET PO SCH (16:00)
== END 2018-10-20 15:05 | disposition home health service (06) | DRG 280 ==
LOC: EDBD → EDUNIT# → N.ED 06:33 → SUATTDRO 08:43 → N.EDINP 08:43 → N.2W 09:05 → N.2E 11:06 → N.CC 16:33 → N.TELEN 10-18 11:54
PROVIDERS: ADMIT Hospitalist; ATTEND Internal Medicine
PROC: IRTHORA (2018-10-17 14:30)

== ENCOUNTER 2018-11-02 08:38 | Inpatient (IN) ==
[2018-11-02] MEDS ORDERED: FUROSEMIDE 100 MG/10 ML VIAL IV STA (09:03)
[2018-11-02] MEDS ORDERED: methylPREDNISolone SOD SUC 125 MG/2 ML VIAL IV STA (09:03)
[2018-11-02] MEDS ORDERED: LEVOFLOXACIN INJ 750 MG in PREMIX 1 EACH IV STA (09:27)
[2018-11-02] MEDS ORDERED: ALBUTEROL 2.5 MG/3 ML NEB RESP TX SCH (09:30)
[2018-11-02 09:32] LABS: Basophils # 0.1 10*3/uL (0.0-0.2); Basophils % 0.7 % (0.0-0.8); Eosinophils # 0.2 10*3/uL (0.0-0.87); Eosinophils % 2.6 % (0.00-10.9); Hematocrit 44.3 VOL% (42.0-52.0); Hemoglobin 14.3 GM/DL (14.0-18.0); Immature Granulocytes % 0.7 %; Immature Granulocytes Absolute 0.05 #; Lymphocytes # 1.7 10*3/uL (1.4-4.0); Lymphocytes % 23.1 % (21.2-54.2); Mean Corpuscular HGB Conc 32.3 GM/DL (32-36); Mean Corpuscular Hemoglobin 30 PG (27-34); Mean Corpuscular Volume 93.3 FL (87-102); Mean Platelet Volume 9.5 FL (9.6-12.0); Monocytes # 0.6 10*3/uL (0.11-0.8); Monocytes % 8.3 % (1.7-12.7); Neutrophils # 4.8 10*3/uL (1.4-7.4); Neutrophils % 64.6 % (38.7-73.9); Platelet Count 198 T/CUMM (130-400); Red Blood Count 4.75 MC/CUMM (3.8-5.5); Red Cell Distribution Width 14.6 % (9.3-17.3); White Blood Count 7.4 T/CUMM (4-12)
[2018-11-02 09:35] LABS: ABG Base Excess -7.3 MMOL/L (-2.5-2.5); ABG HCO3 18.4 MMOL/L (20-26); ABG Oxygen Saturation 84.5 % (95-100); ABG PCO2 33.9 MM HG (35-48); ABG PH 7.329 (7.35-7.45); ABG PO2 55.6 MM HG (80-95); ABG TCO2 15.6 MMOL/L (23-27)
[2018-11-02 09:38] LABS: Bilirubin,Total 0.5 MG/DL (0.2-1.0); Calcium 8.1 MG/DL (8.5-10.1); Osmolality,Calculated 277.8 MOS/KG (273-304); Potassium 4.2 MMOL/L (3.5-5.1); Total Protein 6.9 G/DL (6.4-8.3)
[2018-11-02 09:43] LABS: Lactic Acid 5.7 MMOL/L (0.4-2.0)
[2018-11-02 10:18] LABS: Apearance,Urine CLEAR (Clear); Bilirubin,Urine Negative (Negative); Blood, Urine Negative (Negative); Glucose,Urine (UA) Negative (Negative); Hyaline Casts,Urine 1 /LPF (0-3); Ketones,Urine Negative (Negative); Mucus,Urine Occasional /LPF (Occasional); Nitrite,Urine Negative (Negative); Protein,Urine Negative; RBC,Urine 1 /HPF (0-4); Urine Color Yellow (Yellow); Urine Urobilinogen < 2.0 EU/DL (0.2-1.0); WBC,Urine <1 /HPF (0-6)
[2018-11-02] MEDS ORDERED: ONDANSETRON 4 MG/2 ML VIAL IV PRN (13:49)
[2018-11-02] MEDS ORDERED: NITROGLYCERIN SL 0.4 MG TABLET SL PRN (13:53)
[2018-11-02] MEDS: NICOTINE 21 MG/24 HR PATCH TRANSDERM SCH (17:26)
[2018-11-02] MEDS: ACETAMINOPHEN 325 MG TABLET PO PRN ×2 (17:26→23:13)
[2018-11-02] MEDS: ALBUTEROL/IPRATROPIUM 3 ML NEB RESP TX SCH (19:42)
[2018-11-02] MEDS: methylPREDNISolone SOD SUC 40 MG/1 ML VIAL IV SCH (20:31)
[2018-11-02] MEDS: CARVEDILOL 12.5 MG TABLET PO SCH (20:56)
[2018-11-02] MEDS: FLUTICASONE 50 MCG NASAL SPRAY 16 GM BOTTLE BOTH NARES SCH (20:57)
[2018-11-02] MEDS: ATORVASTATIN 40 MG TABLET PO SCH (20:57)
[2018-11-02] MEDS: traZODone 50 MG TABLET PO PRN (20:57)
[2018-11-03] MEDS: ALBUTEROL/IPRATROPIUM 3 ML NEB RESP TX SCH ×4 (01:33→19:28)
[2018-11-03 05:16] LABS: Basophils % 0.2 % (0.0-0.8); Hematocrit 38.1 VOL% (42.0-52.0); Hemoglobin 12.5 GM/DL (14.0-18.0); Immature Granulocytes % 0.5 %; Immature Granulocytes Absolute 0.03 #; Lymphocytes # 0.4 10*3/uL (1.4-4.0); Lymphocytes % 7.7 % (21.2-54.2); Mean Corpuscular HGB Conc 32.8 GM/DL (32-36); Mean Corpuscular Hemoglobin 29 PG (27-34); Mean Corpuscular Volume 88.8 FL (87-102); Mean Platelet Volume 9.6 FL (9.6-12.0); Monocytes # 0.3 10*3/uL (0.11-0.8); Monocytes % 4.7 % (1.7-12.7); Neutrophils # 4.8 10*3/uL (1.4-7.4); Neutrophils % 86.9 % (38.7-73.9); Platelet Count 173 T/CUMM (130-400); Red Blood Count 4.29 MC/CUMM (3.8-5.5); Red Cell Distribution Width 14.7 % (9.3-17.3); White Blood Count 5.6 T/CUMM (4-12)
[2018-11-03 05:44] LABS: Calcium 8.5 MG/DL (8.5-10.1); Osmolality,Calculated 276.8 MOS/KG (273-304); Potassium 3.7 MMOL/L (3.5-5.1); Risk Ratio 1.95; Thyroid Stimulating Hormone 0.263 uIU/ml (0.358-3.74); VLDL CHOLESTEROL 10.6 MG/DL
[2018-11-03] MEDS ORDERED: NICOTINE 21 MG/24 HR PATCH TRANSDERM SCH (09:00)
[2018-11-03] MEDS: ISOSORBIDE MONONITRATE 30 MG TABLET PO SCH (09:54)
[2018-11-03] MEDS: PANTOPRAZOLE 40 MG TABLET PO SCH (09:54)
[2018-11-03] MEDS: ASPIRIN EC 325 MG TABLET PO SCH (09:54)
[2018-11-03] MEDS: NICOTINE 21 MG/24 HR PATCH TRANSDERM SCH (09:54)
[2018-11-03] MEDS: CARVEDILOL 12.5 MG TABLET PO SCH ×2 (09:54→20:33)
[2018-11-03] MEDS: methylPREDNISolone SOD SUC 40 MG/1 ML VIAL IV SCH ×2 (09:55→21:09)
[2018-11-03] MEDS: FLUTICASONE 50 MCG NASAL SPRAY 16 GM BOTTLE BOTH NARES SCH ×2 (10:01→20:36)
[2018-11-03] MEDS: FUROSEMIDE 40 MG/4 ML VIAL IV SCH (10:01)
[2018-11-03] MEDS: LEVOFLOXACIN INJ 750 MG in PREMIX 1 EACH IV SCH (10:09)
[2018-11-03] MEDS: BENZONATATE 100 MG CAPSULE PO PRN ×2 (11:47→23:14)
[2018-11-03] MEDS ORDERED: IBUPROFEN 400 MG TABLET PO PRN (14:05)
[2018-11-03] MEDS: ATORVASTATIN 40 MG TABLET PO SCH (20:33)
[2018-11-03] MEDS: traZODone 50 MG TABLET PO PRN (20:33)
[2018-11-04] MEDS: ALBUTEROL/IPRATROPIUM 3 ML NEB RESP TX SCH ×4 (00:15→19:17)
[2018-11-04] MEDS ORDERED: guaiFENesin 200 MG/10 ML UDCUP PO PRN (02:10)
[2018-11-04 04:57] LABS: Basophils % 0.1 % (0.0-0.8); Hematocrit 39.1 VOL% (42.0-52.0); Hemoglobin 12.7 GM/DL (14.0-18.0); Immature Granulocytes % 0.8 %; Immature Granulocytes Absolute 0.06 #; Lymphocytes # 0.4 10*3/uL (1.4-4.0); Lymphocytes % 5.6 % (21.2-54.2); Mean Corpuscular HGB Conc 32.5 GM/DL (32-36); Mean Corpuscular Hemoglobin 30 PG (27-34); Mean Corpuscular Volume 90.7 FL (87-102); Mean Platelet Volume 9.9 FL (9.6-12.0); Monocytes # 0.3 10*3/uL (0.11-0.8); Monocytes % 3.8 % (1.7-12.7); Neutrophils % 89.7 % (38.7-73.9); Platelet Count 178 T/CUMM (130-400); Red Blood Count 4.31 MC/CUMM (3.8-5.5); Red Cell Distribution Width 14.7 % (9.3-17.3); White Blood Count 7.9 T/CUMM (4-12)
[2018-11-04 05:26] LABS: Calcium 8.6 MG/DL (8.5-10.1); Osmolality,Calculated 282.5 MOS/KG (273-304); Potassium 3.8 MMOL/L (3.5-5.1)
[2018-11-04 05:27] LABS: Calcium 8.4 MG/DL (8.5-10.1); Osmolality,Calculated 279.7 MOS/KG (273-304); Potassium 3.8 MMOL/L (3.5-5.1)
[2018-11-04] MEDS: CARVEDILOL 12.5 MG TABLET PO SCH ×2 (09:01→21:36)
[2018-11-04] MEDS: FLUTICASONE 50 MCG NASAL SPRAY 16 GM BOTTLE BOTH NARES SCH ×2 (09:01→21:36)
[2018-11-04] MEDS: ISOSORBIDE MONONITRATE 30 MG TABLET PO SCH (09:01)
[2018-11-04] MEDS: PANTOPRAZOLE 40 MG TABLET PO SCH (09:01)
[2018-11-04] MEDS: ASPIRIN EC 325 MG TABLET PO SCH (09:01)
[2018-11-04] MEDS: NICOTINE 21 MG/24 HR PATCH TRANSDERM SCH (09:02)
[2018-11-04] MEDS: FUROSEMIDE 40 MG/4 ML VIAL IV SCH (09:02)
[2018-11-04] MEDS: methylPREDNISolone SOD SUC 40 MG/1 ML VIAL IV SCH ×2 (09:04→22:07)
[2018-11-04] MEDS: LEVOFLOXACIN INJ 750 MG in PREMIX 1 EACH IV SCH (09:08)
[2018-11-04] MEDS: BENZONATATE 100 MG CAPSULE PO PRN ×2 (13:23→21:36)
[2018-11-04] MEDS ORDERED: IBUPROFEN 400 MG TABLET PO PRN (13:48)
[2018-11-04] MEDS: traZODone 50 MG TABLET PO PRN (21:36)
[2018-11-04] MEDS: ATORVASTATIN 40 MG TABLET PO SCH (21:36)
[2018-11-04] MEDS: ACETAMINOPHEN 325 MG TABLET PO PRN (23:52)
[2018-11-05] MEDS: ALBUTEROL/IPRATROPIUM 3 ML NEB RESP TX SCH ×2 (00:21→07:56)
[2018-11-05 05:05] LABS: Hematocrit 38.3 VOL% (42.0-52.0); Hemoglobin 12.5 GM/DL (14.0-18.0); Immature Granulocytes % 0.8 %; Immature Granulocytes Absolute 0.06 #; Lymphocytes # 0.7 10*3/uL (1.4-4.0); Lymphocytes % 8.9 % (21.2-54.2); Mean Corpuscular HGB Conc 32.6 GM/DL (32-36); Mean Corpuscular Hemoglobin 30 PG (27-34); Mean Corpuscular Volume 91.2 FL (87-102); Monocytes # 0.6 10*3/uL (0.11-0.8); Monocytes % 7.7 % (1.7-12.7); Neutrophils # 6.1 10*3/uL (1.4-7.4); Neutrophils % 82.6 % (38.7-73.9); Platelet Count 173 T/CUMM (130-400); Red Cell Distribution Width 14.7 % (9.3-17.3); White Blood Count 7.3 T/CUMM (4-12)
[2018-11-05 05:35] LABS: Calcium 8.2 MG/DL (8.5-10.1); Osmolality,Calculated 277.8 MOS/KG (273-304)
[2018-11-05] MEDS: BENZONATATE 100 MG CAPSULE PO PRN (10:43)
[2018-11-05] MEDS: ISOSORBIDE MONONITRATE 30 MG TABLET PO SCH (10:43)
[2018-11-05] MEDS: ASPIRIN EC 325 MG TABLET PO SCH (10:44)
[2018-11-05] MEDS: CARVEDILOL 12.5 MG TABLET PO SCH (10:44)
[2018-11-05] MEDS: PANTOPRAZOLE 40 MG TABLET PO SCH (10:44)
[2018-11-05] MEDS: NICOTINE 21 MG/24 HR PATCH TRANSDERM SCH (10:46)
[2018-11-05] MEDS: FLUTICASONE 50 MCG NASAL SPRAY 16 GM BOTTLE BOTH NARES SCH (10:48)
[2018-11-05] MEDS: methylPREDNISolone SOD SUC 40 MG/1 ML VIAL IV SCH (10:48)
[2018-11-05] MEDS: FUROSEMIDE 40 MG/4 ML VIAL IV SCH (10:52)
[2018-11-05] MEDS: LEVOFLOXACIN INJ 750 MG in PREMIX 1 EACH IV SCH (10:54)
[2018-11-05] MEDS ORDERED: LEVOFLOXACIN 750 MG TABLET PO SCH (11:30)
[2018-11-05 11:45] VITALS: BP 151/70
== END 2018-11-05 14:30 | disposition home or self-care (01) | DRG 291 ==
LOC: N.ED 08:38 → SUATTDRO 12:38 → N.EDINP 12:38 → N.2E 14:54
PROVIDERS: ADMIT Internal Medicine; ATTEND Internal Medicine Nephrology

== ENCOUNTER 2018-11-08 19:32 | Inpatient (IN) ==
[2018-11-08] MEDS ORDERED: SODIUM CHLORIDE 0.9% 500 ML IV STA (19:48)
[2018-11-08] MEDS ORDERED: ASPIRIN 325 MG TABLET PO STA (19:48)
[2018-11-08] MEDS ORDERED: methylPREDNISolone SOD SUC 125 MG/2 ML VIAL IV STA (19:48)
[2018-11-08] MEDS ORDERED: ALBUTEROL/IPRATROPIUM 3 ML NEB RESP TX STA (19:48)
[2018-11-08] MEDS ORDERED: ONDANSETRON 4 MG/2 ML VIAL IV STA (19:48)
[2018-11-08 20:18] LABS: Basophils # 0.1 10*3/uL (0.0-0.2); Basophils % 0.5 % (0.0-0.8); Eosinophils # 0.2 10*3/uL (0.0-0.87); Eosinophils % 2.4 % (0.00-10.9); Hemoglobin 13.6 GM/DL (14.0-18.0); Immature Granulocytes % 3.5 %; Immature Granulocytes Absolute 0.32 #; Lymphocytes # 1.7 10*3/uL (1.4-4.0); Lymphocytes % 19.1 % (21.2-54.2); Mean Corpuscular Hemoglobin 30 PG (27-34); Mean Corpuscular Volume 89.1 FL (87-102); Mean Platelet Volume 9.5 FL (9.6-12.0); Monocytes # 1.1 10*3/uL (0.11-0.8); Monocytes % 11.5 % (1.7-12.7); Neutrophils # 5.7 10*3/uL (1.4-7.4); Platelet Count 224 T/CUMM (130-400); Red Blood Count 4.49 MC/CUMM (3.8-5.5); Red Cell Distribution Width 14.6 % (9.3-17.3); White Blood Count 9.1 T/CUMM (4-12)
[2018-11-08 20:21] LABS: INR 0.9; PT Patient Result 10.1 SECS
[2018-11-08 20:42] LABS: Alanine Aminotransferase 27 U/L (16-61); Alkaline Phosphatase 55 U/L (45-117); Aspartate Amino Transferase 23 U/L (0-37); Bilirubin,Total < 0.39 MG/DL (0.2-1.0); Blood Urea Nitrogen 14 MG/DL (7-18); Glucose 90 MG/DL (74-106); Osmolality,Calculated 266.4 MOS/KG (273-304); Potassium 3.3 MMOL/L (3.5-5.1); Sodium 133 MMOL/L (136-145); Total Protein 7.2 G/DL (6.4-8.3)
[2018-11-08] MEDS ORDERED: PHENYLEPHRINE DRIP 40 MG/250 ML PREMIX IV PRN (21:06)
[2018-11-08] MEDS ORDERED: PHENYLEPHRINE DRIP 40 MG/250 ML PREMIX IV ONE (21:06)
[2018-11-08 21:27] LABS: Apearance,Urine CLEAR (Clear); Bilirubin,Urine Negative (Negative); Blood, Urine Negative (Negative); Glucose,Urine (UA) Negative (Negative); Ketones,Urine Negative (Negative); Nitrite,Urine Negative (Negative); Protein,Urine Negative; RBC,Urine <1 /HPF (0-4); Urine Color Straw (Yellow); Urine Specific Gravity 1.004 (1.001-1.035); Urine Urobilinogen < 2.0 EU/DL (0.2-1.0); WBC,Urine <1 /HPF (0-6)
[2018-11-08] MEDS ORDERED: ENOXAPARIN 100 MG/ML SYRINGE SUBCUT STA (21:56)
[2018-11-08] MEDS ORDERED: ENOXAPARIN 80 MG/0.8 ML SYRINGE SUBCUT ONE (22:16)
[2018-11-08] MEDS ORDERED: ONDANSETRON 4 MG/2 ML VIAL IV PRN (22:55)
[2018-11-08] MEDS ORDERED: MAGNESIUM SULF RIDER 2 GM in PREMIX 1 EACH IV PRN (22:55)
[2018-11-08] MEDS ORDERED: fentaNYL 100 MCG/2 ML VIAL IV PRN (22:55)
[2018-11-08] MEDS ORDERED: ALBUTEROL/IPRATROPIUM 3 ML NEB RESP TX PRN (22:55)
[2018-11-08] MEDS ORDERED: NON-FORMULARY MEDICATION (Methylprednisolone Dosepak 4 MG) PO SCH (22:55)
[2018-11-08] MEDS ORDERED: MAGNESIUM SULF RIDER 4 GM in PREMIX 1 EACH IV PRN (22:55)
[2018-11-08] MEDS: SODIUM CHLORIDE 0.9% 1,000 ML IV SCH (23:25)
[2018-11-08] MEDS ORDERED: methylPREDNISolone 4 MG TABLET PO SCH (23:30)
[2018-11-09] MEDS: ALBUTEROL/IPRATROPIUM 3 ML NEB RESP TX SCH ×4 (00:53→21:04)
[2018-11-09] MEDS: POTASSIUM CHLORIDE 20 MEQ TABLET PO PRN (02:27)
[2018-11-09] MEDS: ACETAMINOPHEN 325 MG TABLET PO PRN ×2 (02:27→23:18)
[2018-11-09 05:25] LABS: Basophils % 0.6 % (0.0-0.8); Eosinophils % 0.2 % (0.00-10.9); Hematocrit 37.2 VOL% (42.0-52.0); Hemoglobin 12.4 GM/DL (14.0-18.0); Immature Granulocytes % 3.9 %; Immature Granulocytes Absolute 0.18 #; Lymphocytes # 0.4 10*3/uL (1.4-4.0); Lymphocytes % 7.5 % (21.2-54.2); Mean Corpuscular HGB Conc 33.3 GM/DL (32-36); Mean Corpuscular Hemoglobin 30 PG (27-34); Mean Corpuscular Volume 88.8 FL (87-102); Mean Platelet Volume 9.8 FL (9.6-12.0); Monocytes # 0.1 10*3/uL (0.11-0.8); Monocytes % 2.4 % (1.7-12.7); Neutrophils % 85.4 % (38.7-73.9); Platelet Count 211 T/CUMM (130-400); Red Blood Count 4.19 MC/CUMM (3.8-5.5); Red Cell Distribution Width 14.6 % (9.3-17.3); White Blood Count 4.6 T/CUMM (4-12)
[2018-11-09 05:36] LABS: Albumin 2.7 G/DL (3.4-5.0); Bilirubin,Total 0.7 MG/DL (0.2-1.0); Calcium 8.6 MG/DL (8.5-10.1); Osmolality,Calculated 271.1 MOS/KG (273-304); Potassium 4.4 MMOL/L (3.5-5.1); Risk Ratio 1.85; Thyroid Stimulating Hormone 0.333 uIU/ml (0.358-3.74); Total Protein 6.3 G/DL (6.4-8.3); VLDL CHOLESTEROL 13.8 MG/DL
[2018-11-09] MEDS: BENZONATATE 100 MG CAPSULE PO PRN (06:27)
[2018-11-09] MEDS ORDERED: POTASSIUM CHLORIDE RIDER 10 MEQ in PREMIX 1 EACH IV PRN (07:24)
[2018-11-09] MEDS ORDERED: diphenhydrAMINE CAP 25 MG CAPSULE PO ONE (07:24)
[2018-11-09] MEDS ORDERED: MAGNESIUM SULF RIDER 2 GM in PREMIX 1 EACH IV PRN (07:24)
[2018-11-09] MEDS ORDERED: DIAZEPAM 5 MG TABLET PO ONE (07:24)
[2018-11-09] MEDS: SODIUM CHLORIDE 0.9% 1,000 ML IV SCH ×2 (07:53→18:01)
[2018-11-09] MEDS ORDERED: ENOXAPARIN 80 MG/0.8 ML SYRINGE SUBCUT SCH (09:00)
[2018-11-09] MEDS ORDERED: ASPIRIN EC 325 MG TABLET PO SCH (09:00)
[2018-11-09] MEDS: NICOTINE 21 MG/24 HR PATCH TRANSDERM PRN (10:27)
[2018-11-09] MEDS: CARVEDILOL 12.5 MG TABLET PO SCH ×2 (10:29→21:31)
[2018-11-09] MEDS: FLUTICASONE 50 MCG NASAL SPRAY 16 GM BOTTLE BOTH NARES SCH ×2 (10:30→21:31)
[2018-11-09] MEDS ORDERED: LIDOCAINE 1% 20 ML VIAL ONE (11:10)
[2018-11-09] MEDS ORDERED: HEPARIN/NACL 0.9% 2 UNITS/ML 1,000 ML IV ONE (11:10)
[2018-11-09] MEDS ORDERED: HYDROmorphone 2 MG/1 ML VIAL ONE (11:34)
[2018-11-09] MEDS ORDERED: MIDAZOLAM 2 MG/2 ML VIAL ONE (11:35)
[2018-11-09] MEDS ORDERED: BIVALIRUDIN 250 MG in SODIUM CHLORIDE 0.9% 50 ML IV SCH (11:58)
[2018-11-09] MEDS ORDERED: BIVALIRUDIN 250 MG VIAL IV ONE (12:01)
[2018-11-09] MEDS ORDERED: TICAGRELOR 90 MG TABLET ONE (12:28)
[2018-11-09] MEDS: PANTOPRAZOLE 40 MG TABLET PO SCH (17:30)
[2018-11-09] MEDS: LEVOFLOXACIN 500 MG TABLET PO SCH (17:31)
[2018-11-09] MEDS: ISOSORBIDE MONONITRATE 30 MG TABLET PO SCH (17:33)
[2018-11-09] MEDS: FUROSEMIDE 40 MG/4 ML VIAL IV SCH (17:33)
[2018-11-09] MEDS: SACUBITRIL/VALSARTAN 49-51 MG TABLET PO SCH (21:31)
[2018-11-09] MEDS: TICAGRELOR 90 MG TABLET PO SCH (21:31)
[2018-11-09] MEDS: ATORVASTATIN 40 MG TABLET PO SCH (21:31)
[2018-11-10] MEDS: ALBUTEROL/IPRATROPIUM 3 ML NEB RESP TX SCH ×4 (00:21→19:48)
[2018-11-10 04:21] LABS: Basophils % 0.2 % (0.0-0.8); Eosinophils # 0.1 10*3/uL (0.0-0.87); Eosinophils % 1.8 % (0.00-10.9); Hematocrit 36.6 VOL% (42.0-52.0); Hemoglobin 12.1 GM/DL (14.0-18.0); Immature Granulocytes % 2.5 %; Immature Granulocytes Absolute 0.14 #; Lymphocytes # 0.9 10*3/uL (1.4-4.0); Lymphocytes % 16.7 % (21.2-54.2); Mean Corpuscular HGB Conc 33.1 GM/DL (32-36); Mean Corpuscular Hemoglobin 30 PG (27-34); Mean Corpuscular Volume 89.7 FL (87-102); Mean Platelet Volume 9.5 FL (9.6-12.0); Monocytes # 0.7 10*3/uL (0.11-0.8); Monocytes % 11.9 % (1.7-12.7); Neutrophils # 3.8 10*3/uL (1.4-7.4); Neutrophils % 66.9 % (38.7-73.9); Platelet Count 186 T/CUMM (130-400); Red Blood Count 4.08 MC/CUMM (3.8-5.5); Red Cell Distribution Width 14.6 % (9.3-17.3); White Blood Count 5.6 T/CUMM (4-12)
[2018-11-10 04:38] LABS: Osmolality,Calculated 274.8 MOS/KG (273-304); Potassium 3.4 MMOL/L (3.5-5.1)
[2018-11-10 04:42] LABS: Blood Urea Nitrogen 18 MG/DL (7-18); Calcium 7.8 MG/DL (8.5-10.1); Glucose 100 MG/DL (74-106); Potassium 3.5 MMOL/L (3.5-5.1); Sodium 136 MMOL/L (136-145)
[2018-11-10] MEDS: POTASSIUM CHLORIDE 20 MEQ TABLET PO PRN ×2 (06:05→09:01)
[2018-11-10] MEDS: ISOSORBIDE MONONITRATE 30 MG TABLET PO SCH (08:59)
[2018-11-10] MEDS: TICAGRELOR 90 MG TABLET PO SCH ×2 (09:00→20:22)
[2018-11-10] MEDS: LEVOFLOXACIN 500 MG TABLET PO SCH (09:00)
[2018-11-10] MEDS: CARVEDILOL 12.5 MG TABLET PO SCH ×2 (09:01→20:21)
[2018-11-10] MEDS: ASPIRIN CHEW 81 MG TABLET PO SCH (09:01)
[2018-11-10] MEDS: PANTOPRAZOLE 40 MG TABLET PO SCH (09:01)
[2018-11-10] MEDS: SACUBITRIL/VALSARTAN 49-51 MG TABLET PO SCH ×2 (09:02→20:20)
[2018-11-10] MEDS: FLUTICASONE 50 MCG NASAL SPRAY 16 GM BOTTLE BOTH NARES SCH ×2 (09:02→20:22)
[2018-11-10] MEDS: FUROSEMIDE 40 MG/4 ML VIAL IV SCH ×2 (09:03→16:15)
[2018-11-10] MEDS: NICOTINE 21 MG/24 HR PATCH TRANSDERM PRN (09:27)
[2018-11-10] MEDS: ATORVASTATIN 40 MG TABLET PO SCH (20:21)
[2018-11-10] MEDS: ACETAMINOPHEN 325 MG TABLET PO PRN (20:21)
[2018-11-10] MEDS: BENZONATATE 100 MG CAPSULE PO PRN (20:22)
[2018-11-11] MEDS: ALBUTEROL/IPRATROPIUM 3 ML NEB RESP TX SCH ×4 (00:32→19:58)
[2018-11-11 03:32] LABS: Basophils % 0.6 % (0.0-0.8); Eosinophils # 0.2 10*3/uL (0.0-0.87); Eosinophils % 2.5 % (0.00-10.9); Hematocrit 40.1 VOL% (42.0-52.0); Hemoglobin 13.4 GM/DL (14.0-18.0); Immature Granulocytes % 4.4 %; Immature Granulocytes Absolute 0.28 #; Lymphocytes % 15.7 % (21.2-54.2); Mean Corpuscular HGB Conc 33.4 GM/DL (32-36); Mean Corpuscular Hemoglobin 30 PG (27-34); Mean Corpuscular Volume 88.1 FL (87-102); Mean Platelet Volume 9.1 FL (9.6-12.0); Monocytes # 0.9 10*3/uL (0.11-0.8); Monocytes % 14.3 % (1.7-12.7); Neutrophils % 62.5 % (38.7-73.9); Platelet Count 184 T/CUMM (130-400); Red Blood Count 4.55 MC/CUMM (3.8-5.5); Red Cell Distribution Width 14.5 % (9.3-17.3); White Blood Count 6.4 T/CUMM (4-12)
[2018-11-11 04:00] LABS: Calcium 8.4 MG/DL (8.5-10.1); Osmolality,Calculated 266.5 MOS/KG (273-304); Potassium 3.6 MMOL/L (3.5-5.1)
[2018-11-11] MEDS: POTASSIUM CHLORIDE 20 MEQ TABLET PO PRN (06:02)
[2018-11-11] MEDS: NITROGLYCERIN SL 0.4 MG TABLET SL PRN ×3 (06:04→06:14)
[2018-11-11] MEDS ORDERED: ASPIRIN CHEW 81 MG TABLET PO ONE (06:09)
[2018-11-11] MEDS ORDERED: NITROGLYCERIN SL 0.4 MG TABLET SL PRN (06:09)
[2018-11-11] MEDS ORDERED: ASPIRIN 325 MG TABLET ONE (06:13)
[2018-11-11] MEDS: TICAGRELOR 90 MG TABLET PO SCH ×2 (09:23→20:23)
[2018-11-11] MEDS: SACUBITRIL/VALSARTAN 49-51 MG TABLET PO SCH ×2 (09:24→20:23)
[2018-11-11] MEDS: LEVOFLOXACIN 500 MG TABLET PO SCH (09:24)
[2018-11-11] MEDS: ASPIRIN CHEW 81 MG TABLET PO SCH (09:25)
[2018-11-11] MEDS: PANTOPRAZOLE 40 MG TABLET PO SCH (09:25)
[2018-11-11] MEDS: ISOSORBIDE MONONITRATE 30 MG TABLET PO SCH (09:25)
[2018-11-11] MEDS: FUROSEMIDE 40 MG/4 ML VIAL IV SCH ×2 (09:26→17:00)
[2018-11-11] MEDS: FLUTICASONE 50 MCG NASAL SPRAY 16 GM BOTTLE BOTH NARES SCH ×3 (09:32→20:25)
[2018-11-11] MEDS: BENZONATATE 100 MG CAPSULE PO PRN ×2 (12:37→20:34)
[2018-11-11] MEDS: NICOTINE 21 MG/24 HR PATCH TRANSDERM PRN (12:38)
[2018-11-11] MEDS ORDERED: SODIUM CHLORIDE 0.9% 500 ML IV ONE (14:20)
[2018-11-11] MEDS: CARVEDILOL 12.5 MG TABLET PO SCH ×2 (14:22→20:24)
[2018-11-11 14:52] LABS: Basophils # 0.1 10*3/uL (0.0-0.2); Basophils % 0.8 % (0.0-0.8); Eosinophils # 0.2 10*3/uL (0.0-0.87); Eosinophils % 2.9 % (0.00-10.9); Hematocrit 40.7 VOL% (42.0-52.0); Hemoglobin 13.8 GM/DL (14.0-18.0); Immature Granulocytes % 4.5 %; Lymphocytes % 15.1 % (21.2-54.2); Mean Corpuscular HGB Conc 33.9 GM/DL (32-36); Mean Corpuscular Hemoglobin 30 PG (27-34); Mean Corpuscular Volume 88.9 FL (87-102); Mean Platelet Volume 9.2 FL (9.6-12.0); Monocytes % 14.5 % (1.7-12.7); Neutrophils # 4.1 10*3/uL (1.4-7.4); Neutrophils % 62.2 % (38.7-73.9); Platelet Count 190 T/CUMM (130-400); Red Blood Count 4.58 MC/CUMM (3.8-5.5); Red Cell Distribution Width 14.6 % (9.3-17.3); White Blood Count 6.6 T/CUMM (4-12)
[2018-11-11 16:19] LABS: Calcium 8.5 MG/DL (8.5-10.1)
[2018-11-11 16:20] LABS: Osmolality,Calculated 267.4 MOS/KG (273-304)
[2018-11-11] MEDS: ATORVASTATIN 40 MG TABLET PO SCH (20:23)
[2018-11-11] MEDS ORDERED: SODIUM CHLORIDE 0.9% 1,000 ML IV ONE (22:22)
[2018-11-12] MEDS: ALBUTEROL/IPRATROPIUM 3 ML NEB RESP TX SCH ×4 (01:23→19:20)
[2018-11-12 04:39] LABS: Basophils % 0.7 % (0.0-0.8); Eosinophils # 0.2 10*3/uL (0.0-0.87); Hematocrit 39.3 VOL% (42.0-52.0); Hemoglobin 13.1 GM/DL (14.0-18.0); Immature Granulocytes % 3.5 %; Immature Granulocytes Absolute 0.19 #; Lymphocytes # 0.9 10*3/uL (1.4-4.0); Lymphocytes % 16.2 % (21.2-54.2); Mean Corpuscular HGB Conc 33.3 GM/DL (32-36); Mean Corpuscular Hemoglobin 30 PG (27-34); Mean Corpuscular Volume 89.1 FL (87-102); Mean Platelet Volume 9.5 FL (9.6-12.0); Monocytes # 0.7 10*3/uL (0.11-0.8); Monocytes % 13.4 % (1.7-12.7); Neutrophils # 3.4 10*3/uL (1.4-7.4); Neutrophils % 63.2 % (38.7-73.9); Platelet Count 189 T/CUMM (130-400); Red Blood Count 4.41 MC/CUMM (3.8-5.5); Red Cell Distribution Width 14.5 % (9.3-17.3); White Blood Count 5.4 T/CUMM (4-12)
[2018-11-12 04:54] LABS: Calcium 8.5 MG/DL (8.5-10.1); Potassium 3.5 MMOL/L (3.5-5.1)
[2018-11-12] MEDS: LEVOFLOXACIN 500 MG TABLET PO SCH (09:32)
[2018-11-12] MEDS: ASPIRIN CHEW 81 MG TABLET PO SCH (09:33)
[2018-11-12] MEDS: PANTOPRAZOLE 40 MG TABLET PO SCH (09:33)
[2018-11-12] MEDS: BENZONATATE 100 MG CAPSULE PO PRN ×2 (09:33→22:11)
[2018-11-12] MEDS: SACUBITRIL/VALSARTAN 49-51 MG TABLET PO SCH ×2 (09:33→22:11)
[2018-11-12] MEDS: TICAGRELOR 90 MG TABLET PO SCH ×2 (09:33→22:11)
[2018-11-12] MEDS: FLUTICASONE 50 MCG NASAL SPRAY 16 GM BOTTLE BOTH NARES SCH ×2 (09:34→22:12)
[2018-11-12] MEDS: CARVEDILOL 12.5 MG TABLET PO SCH ×2 (09:35→22:11)
[2018-11-12] MEDS ORDERED: diphenhydrAMINE CAP 25 MG CAPSULE PO PRN (13:11)
[2018-11-12] MEDS: ISOSORBIDE MONONITRATE 30 MG TABLET PO SCH (15:35)
[2018-11-12] MEDS: NICOTINE 21 MG/24 HR PATCH TRANSDERM PRN (17:19)
[2018-11-12] MEDS: ATORVASTATIN 40 MG TABLET PO SCH (22:11)
[2018-11-12] MEDS: traZODone 50 MG TABLET PO PRN (23:03)
[2018-11-13] MEDS: ALBUTEROL/IPRATROPIUM 3 ML NEB RESP TX SCH ×4 (01:00→20:18)
[2018-11-13] MEDS: [UNRECOGNIZED DRUG - OTHER] MC SCH (04:05)
[2018-11-13 05:27] LABS: Basophils # 0.1 10*3/uL (0.0-0.2); Basophils % 0.7 % (0.0-0.8); Eosinophils # 0.3 10*3/uL (0.0-0.87); Eosinophils % 3.7 % (0.00-10.9); Hematocrit 37.3 VOL% (42.0-52.0); Hemoglobin 12.5 GM/DL (14.0-18.0); Immature Granulocytes % 2.4 %; Immature Granulocytes Absolute 0.17 #; Lymphocytes % 14.2 % (21.2-54.2); Mean Corpuscular HGB Conc 33.5 GM/DL (32-36); Mean Corpuscular Hemoglobin 30 PG (27-34); Mean Corpuscular Volume 90.8 FL (87-102); Mean Platelet Volume 9.5 FL (9.6-12.0); Monocytes # 0.9 10*3/uL (0.11-0.8); Monocytes % 12.4 % (1.7-12.7); Neutrophils # 4.7 10*3/uL (1.4-7.4); Neutrophils % 66.6 % (38.7-73.9); Platelet Count 168 T/CUMM (130-400); Red Blood Count 4.11 MC/CUMM (3.8-5.5); Red Cell Distribution Width 14.7 % (9.3-17.3)
[2018-11-13 05:55] LABS: Calcium 8.7 MG/DL (8.5-10.1); Osmolality,Calculated 275.7 MOS/KG (273-304); Potassium 3.6 MMOL/L (3.5-5.1)
[2018-11-13] MEDS: PANTOPRAZOLE 40 MG TABLET PO SCH (09:56)
[2018-11-13] MEDS: SACUBITRIL/VALSARTAN 49-51 MG TABLET PO SCH ×2 (09:57→22:26)
[2018-11-13] MEDS: FLUTICASONE 50 MCG NASAL SPRAY 16 GM BOTTLE BOTH NARES SCH ×2 (09:57→22:26)
[2018-11-13] MEDS: TICAGRELOR 90 MG TABLET PO SCH ×2 (09:57→22:25)
[2018-11-13] MEDS: LEVOFLOXACIN 500 MG TABLET PO SCH (09:57)
[2018-11-13] MEDS: CARVEDILOL 12.5 MG TABLET PO SCH ×2 (09:57→22:25)
[2018-11-13] MEDS: ASPIRIN CHEW 81 MG TABLET PO SCH (09:57)
[2018-11-13] MEDS: NICOTINE 21 MG/24 HR PATCH TRANSDERM PRN (14:44)
[2018-11-13] MEDS: ATORVASTATIN 40 MG TABLET PO SCH (22:25)
[2018-11-13] MEDS: traZODone 50 MG TABLET PO PRN (22:29)
[2018-11-14] MEDS: ALBUTEROL/IPRATROPIUM 3 ML NEB RESP TX SCH ×2 (00:33→08:21)
[2018-11-14] MEDS: BENZONATATE 100 MG CAPSULE PO PRN (02:47)
[2018-11-14 04:36] LABS: Basophils % 0.3 % (0.0-0.8); Eosinophils # 0.2 10*3/uL (0.0-0.87); Eosinophils % 2.9 % (0.00-10.9); Hematocrit 38.1 VOL% (42.0-52.0); Hemoglobin 12.3 GM/DL (14.0-18.0); Immature Granulocytes % 1.2 %; Immature Granulocytes Absolute 0.07 #; Lymphocytes # 0.7 10*3/uL (1.4-4.0); Lymphocytes % 12.3 % (21.2-54.2); Mean Corpuscular HGB Conc 32.3 GM/DL (32-36); Mean Corpuscular Hemoglobin 29 PG (27-34); Mean Corpuscular Volume 90.7 FL (87-102); Mean Platelet Volume 9.7 FL (9.6-12.0); Monocytes # 0.6 10*3/uL (0.11-0.8); Monocytes % 10.8 % (1.7-12.7); Neutrophils # 4.3 10*3/uL (1.4-7.4); Neutrophils % 72.5 % (38.7-73.9); Platelet Count 164 T/CUMM (130-400); Red Cell Distribution Width 14.7 % (9.3-17.3); White Blood Count 5.9 T/CUMM (4-12)
[2018-11-14 04:55] LABS: Calcium 8.3 MG/DL (8.5-10.1); Osmolality,Calculated 274.7 MOS/KG (273-304); Potassium 3.5 MMOL/L (3.5-5.1)
[2018-11-14] MEDS: CARVEDILOL 12.5 MG TABLET PO SCH (09:39)
[2018-11-14] MEDS: TICAGRELOR 90 MG TABLET PO SCH (09:39)
[2018-11-14] MEDS: ASPIRIN CHEW 81 MG TABLET PO SCH (09:39)
[2018-11-14] MEDS: SACUBITRIL/VALSARTAN 49-51 MG TABLET PO SCH (09:39)
[2018-11-14] MEDS: LEVOFLOXACIN 500 MG TABLET PO SCH (09:40)
[2018-11-14] MEDS: FLUTICASONE 50 MCG NASAL SPRAY 16 GM BOTTLE BOTH NARES SCH (09:40)
[2018-11-14] MEDS: PANTOPRAZOLE 40 MG TABLET PO SCH (09:40)
[2018-11-14] MEDS: [UNRECOGNIZED DRUG - OTHER] MC SCH (09:41)
[2018-11-14 12:31] VITALS: BP 111/75
== END 2018-11-14 13:45 | disposition home or self-care (01) | DRG 248 ==
LOC: EDUNIT# → N.ED 19:32 → N.EDINP 21:56 → N.CC 22:51 → N.TELES 11-12 13:25
PROVIDERS: ADMIT Internal Medicine Cardiovascular Disease; ATTEND Internal Medicine Cardiovascular Disease
PROC: CLCCHCL (ICD-10-PCS; 2018-11-09 11:45)